=== PATIENT | male | born 1985 | race Caucasian/White ===

== ENCOUNTER 2016-09-28 14:12 | Emergency (ER) | payer OTHER ==
[~2016-09-28] VITALS: Ht 185.4 cm; Wt 104.0 kg
[~2016-09-28 14:12] MED LIST: ESZO1TAB16 PO
[2016-09-28 14:16] VITALS: TEMP 36.5; O2SAT 96; Ht 185.4 cm; Wt 104.0 kg
[2016-09-28] MEDS ORDERED: HYDROCODONE/ACETAMOPHEN 5/325MG TAB PO STA (14:52)
[2016-09-28] MEDS ORDERED: ZOLP12.5 PO (14:55)
--- NOTE | 2016-09-28 15:36 | EMERGENCY ROOM VISIT NOTE ---
ED Visit Note First contact with patient: 14:15 CHIEF COMPLAINT: Right ear pain HISTORY OF PRESENT ILLNESS: This 31-year-old male presents the ER with chief complaint of right ear pain for the past 3 days. The patient states it Progressively worse today. The patient denies any visible drainage from the ear. The patient states it feels like he cannot hear out of the right ear. The patient denies any recent cold symptoms such as head congestion, runny nose , sore throat or cough. The patient does admit to having a fungal infection in the ear several years ago. REVIEW OF SYSTEMS: 6 system review was performed and was negative unless stated otherwise in history of present illness. PMH: The patient is healthy; prior fungal ear infection, psychiatric disorder SOCIAL HISTORY: Patient denies tobacco use but admits to occasional alcohol use. PHYSICAL EXAM: Vital Signs: Were reviewed Reviewed Nurse's notes. GEN.: 31-year -old male appears in no acute distress. MENTAL Status: Alert and oriented 3. EARS: Left canal clear. TMs with good light reflex. Right TM with edema. There is a white curdy drainage noted on the TM with multiple black small spots which are "gravel-like in appearance" EMERGENCY COURSE: The patient was evaluated. The patient was given Lorman 5/325 mg 2 tablets by mouth for pain. The patient's case was discussed with Dr. Burnett who agreed with treatment plan. I contacted the hospital pharmacist who recommended acetic acid 2% to apply 4 times a day to the affected ear. One drop of acetic acid was placed into the right ear. The patient remained in the left lateral position for 10 minutes after placement of the drop. The patient was discharged home in stable condition. DIAGNOSIS: Acute otitis externa/fungal infection DISCHARGE INSTRUCTIONS & TREATMENT: Ibuprofen 600 mg every 6 hours with food for pain. Take Lorman as needed for more severe pain. Do not drive while taking the Lorman. Apply the eardrops 1 drop into the right ear 4 times a day until evaluated by ENT, Dr. Nuñez. Call Dr. Nuñez tomorrow for follow-up appointment. Keep ear as dry as possible until evaluated by ENT. Current/Historical Medications Scheduled Quetiapine Fumarate (Seroquel), 2 TAB PO HS Zolpidem Tartrate (Ambien Cr), 12.5 MG PO HS Allergies Coded Allergies: No Known Allergies (Unverified , 04/10/16) Vital Signs Date Time Temp Pulse Resp B/P Pulse Ox O2 Delivery O2 Flow Rate FiO2 09/28/16 14:16 36.5 126 20 151/93 96 Room Air Medications Administered Medications (Trade) Dose Ordered Sig/Marti Route Start Time Stop Time Status Last Admin Dose Admin Acetic Acid (Vosol 2% Otic Soln) 1 drops QID OT 09/28/16 17:00 10/28/16 16:59 09/28/16 15:26 1 DROPS Acetaminophen/ Hydrocodone Bitart (Lorman 5/325 Tab) 2 tab NOW STAT PO 09/28/16 14:52 09/28/16 14:53 DC 09/28/16 15:25 2 TAB Departure Information Referrals Ghassan Rosen, D.O.[facility] (PCP) Patient Instructions [facility]
[2016-09-28] MEDS ORDERED: HYDR-5688 PO (15:38)
[2016-09-28 15:44] VITALS: BP 140/98; PULSE 78
[2016-09-28] MEDS ORDERED: ACETIC ACID 2% OTIC SOLN 15 ML BTL OT SCH (17:00)
[2016-09-28] MEDS ORDERED: QUET400T PO (22:45)
== END 2016-09-28 15:50 | disposition home or self-care (01) ==
LOC: C.EDB 14:14 → C.EDD 15:50
DX: H60.501 Unspecified acute noninfective otitis externa, right ear (principal); B49 Unspecified mycosis; Z79.899 Other long term (current) drug therapy

== ENCOUNTER 2018-08-18 20:38 | Inpatient (IN) ==
[2018-08-18] MEDS ORDERED: SODIUM CHLORIDE 0.9% 1000ML 1,000 ML IV SCH (21:00)
[2018-08-18] MEDS ORDERED: MULTI-VITAMIN INFUSION 10 ML, THIAMINE HCL 100 MG, FOLIC ACID 1 MG in SODIUM CHLORIDE 0... IV SCH (21:00)
--- NOTE | 2018-08-18 21:18 | Emergency Department Note ---
Entered by Mg Hogan acting as a scribe for History of Present Illness General Chief complaint: Mental Health Evaluation Stated complaint: High blood pressure Time Seen by Provider: 08/18/18 20:44 Source: patient Limitations: altered mental status History of Present Illness Provider complaint: SUICIDAL/Depression Onset (ago): week(s) Location: head (Psych) Pain Consistency: + other (worsening mental status) Quality: + other (Depression/Suicidal) Exacerbated By: + other (Parent's selling his house) Treatments prior to arrival: none The patient is a 33 year old male who presents to the Emergency Room for his worsening mental status. The patient states that he has been depressed for a week, due to "his parents selling the house." He adds that he does not want the house to be sold, and this is upsetting him. The patient denies wanting to kill himself, but adds that does wants to hurt himself by "hanging myself." When asked again if the hanging would be performed to kill himself, he confirms. The patient also denies hearing voices, but notes that "it sounds like there are attorneys having an argument in my head." He denies that these voices in his head are telling him to hurt himself, but they do "tell me to do this and that. " The patient does admit to drinking 1/2 of a 1.75 L bottle of alcohol yesterday. He notes that a couple of days ago he went 3-4 days without drinking and went into withdrawal. The patient does confirm that he has a history of Schizophrenia and anxiety and is on Zyprexa. He denies any history of inpatient psych admission. Review of the patient's EMR shows that he was here in the ED two days ago for auditory hallucinations. He was cleared medically for psych case management evaluation. The patient was discharged home and told to come back immediately if he became suicidal. The patient was given Clonidine patch and 4-pills of Ativan. Home Medications Home Medications Medication Instructions Recorded Confirmed Type olanzapine [Zyprexa] 5 mg PO HS 08/16/18 08/18/18 History omega 1-mvv-yim-fish oil [Fish Oil] 1,000 mg PO DAILY 08/18/18 08/18/18 History zolpidem [Ambien CR] 12.5 mg PO HS 08/19/18 08/19/18 History Allergies Allergy/AdvReac Type Severity Reaction Status Date / Time No Known Allergies Allergy Verified 08/18/18 23:13 Past Med/Surg History Medical History Schizophrenia (Chronic) Sleep apnea (Chronic) No significant family history No significant past surgical history Social History Current Living Situation: Other Current Living Situation Comment: Lives with roomates Other Information That Helps Us Care for You: No Feels Safe at Home: Yes Safety Concerns: Feels Safe At This Time Smoking Status: Never smoker Do You Dip or Chew Tobacco: No Second Hand Exposure: Yes Tobacco Cessation Education Requested by Patient: No Hx Alcohol Use: Yes Alcohol type: beer, wine and hard liquor Alcohol Intake Frequency: 3 or more drinks per day Hx Substance Use: Yes substance use type: former substance user and marijuana Last Used Substance Other:: 2 months ago - marijuana Beliefs That Will Affect Care: None Communication Ability: Effective Review of Systems See HPI for pertinent positives & negatives. and A total of 10 systems reviewed and were otherwise negative Physical Exam Vital Signs Vital Signs - 24 hr 08/19/18 17:29 08/19/18 19:00 08/19/18 19:45 Temperature 36.7 C Temperature Source Oral Pulse Rate 130 H Pulse Rate [Finger] 121 H Pulse Rate [Left] Pulse Rhythm [Finger] Pulse Rhythm [Left] Pulse Strength [Finger] Pulse Strength [Left] Respiratory Rate 20 Respiratory Effort / Characteristics Non-Labored Respiratory Depth Normal Respiratory Pattern Regular Blood Pressure Blood Pressure [Left Arm] Blood Pressure [Right Arm] 151/88 H Blood Pressure Mean [Left Arm] Blood Pressure Mean [Right Arm] 109 Blood Pressure Position [Left Arm] Blood Pressure Position [Right Arm] Lying Pulse Oximetry 97 Oxygen Delivery Method Room Air Room Air 08/19/18 20:28 08/19/18 23:36 08/19/18 23:45 Temperature 37.1 C Temperature Source Oral Pulse Rate 121 H 120 H Pulse Rate [Finger] 120 H Pulse Rate [Left] Pulse Rhythm [Finger] Pulse Rhythm [Left] Pulse Strength [Finger] Pulse Strength [Left] Respiratory Rate 22 Respiratory Effort / Characteristics Respiratory Depth Respiratory Pattern Blood Pressure 151/88 H 152/98 H Blood Pressure [Left Arm] 152/98 H Blood Pressure [Right Arm] Blood Pressure Mean [Left Arm] 116 Blood Pressure Mean [Right Arm] Blood Pressure Position [Left Arm] Lying Blood Pressure Position [Right Arm] Pulse Oximetry 96 Oxygen Delivery Method Room Air 08/20/18 00:03 08/20/18 03:28 08/20/18 03:50 Temperature 36.6 C Temperature Source Oral Pulse Rate 117 H 100 H Pulse Rate [Finger] 100 H Pulse Rate [Left] Pulse Rhythm [Finger] Pulse Rhythm [Left] Pulse Strength [Finger] Pulse Strength [Left] Respiratory Rate 22 Respiratory Effort / Characteristics Non-Labored Respiratory Depth Normal Respiratory Pattern Regular Blood Pressure 156/105 H Blood Pressure [Left Arm] 156/105 H Blood Pressure [Right Arm] Blood Pressure Mean [Left Arm] 122 Blood Pressure Mean [Right Arm] Blood Pressure Position [Left Arm] Blood Pressure Position [Right Arm] Pulse Oximetry 98 Oxygen Delivery Method Room Air 08/20/18 06:29 08/20/18 07:29 08/20/18 09:15 Temperature 36.3 C L 36.7 C Temperature Source Oral Oral Pulse Rate 122 H Pulse Rate [Finger] 109 H 104 H Pulse Rate [Left] Pulse Rhythm [Finger] Pulse Rhythm [Left] Pulse Strength [Finger] Pulse Strength [Left] Respiratory Rate 20 18 Respiratory Effort / Characteristics Non-Labored Respiratory Depth Normal Normal Respiratory Pattern Blood Pressure Blood Pressure [Left Arm] 162/116 H 157/107 H Blood Pressure [Right Arm] Blood Pressure Mean [Left Arm] 131 123 Blood Pressure Mean [Right Arm] Blood Pressure Position [Left Arm] Sitting Blood Pressure Position [Right Arm] Pulse Oximetry 97 96 Oxygen Delivery Method Room Air Room Air 08/20/18 09:21 08/20/18 11:21 08/20/18 12:08 Temperature 36.6 C 37.3 C Temperature Source Oral Oral Pulse Rate 107 H Pulse Rate [Finger] 116 H Pulse Rate [Left] 116 H 99 H Pulse Rhythm [Finger] Regular Pulse Rhythm [Left] Regular Pulse Strength [Finger] Normal Pulse Strength [Left] Normal Respiratory Rate 19 18 Respiratory Effort / Characteristics Non-Labored Respiratory Depth Normal Normal Respiratory Pattern Regular Blood Pressure Blood Pressure [Left Arm] 161/111 H Blood Pressure [Right Arm] 172/110 H Blood Pressure Mean [Left Arm] 127 Blood Pressure Mean [Right Arm] 130 Blood Pressure Position [Left Arm] Sitting Blood Pressure Position [Right Arm] Semi-fowlers Pulse Oximetry 96 Oxygen Delivery Method Room Air 08/20/18 13:23 08/20/18 14:18 08/20/18 15:19 Temperature 37.5 C 36.9 C 37.2 C Temperature Source Oral Oral Oral Pulse Rate Pulse Rate [Finger] Pulse Rate [Left] 108 H 111 H 106 H Pulse Rhythm [Finger] Pulse Rhythm [Left] Pulse Strength [Finger] Pulse Strength [Left] Respiratory Rate 18 18 16 Respiratory Effort / Characteristics Respiratory Depth Normal Normal Respiratory Pattern Blood Pressure Blood Pressure [Left Arm] 146/91 H 171/96 H 159/106 H Blood Pressure [Right Arm] Blood Pressure Mean [Left Arm] 109 121 123 Blood Pressure Mean [Right Arm] Blood Pressure Position [Left Arm] Lying Lying Lying Blood Pressure Position [Right Arm] Pulse Oximetry 94 96 95 Oxygen Delivery Method Room Air Room Air Room Air GENERAL: Awake, anxious and tremulous appearing. HENT: Normocephalic, atraumatic. Oropharynx with dry mucous membranes and otherwise unremarkable. Poor dentition. EYES: Normal conjunctiva. Sclera non-icteric. EOMI. No nystamgus. PEARRL. NECK: Supple. No nuchal rigidity. FROM. No JVD. RESPIRATORY: Clear to auscultation. CARDIAC: Tachycardic rate, normal rhythm. Extremities warm and well perfused. Pulses equal. ABDOMEN: Soft, non-distended. No tenderness to palpation. No rebound or guarding. No masses. RECTAL: Deferred. MUSCULOSKELETAL: Chest examination reveals no tenderness. The back is symmetrical on inspection without obvious abnormality. There is no CVA tenderness to palpation. No joint edema. LOWER EXTREMITIES: Calves are equal size bilaterally and non-tender. No edema. No discoloration. NEURO: No sensory or motor deficits. Moving all extremities equally. No clonus or rigidity. Normal reflexes. SKIN: Warm and dry. No rash or jaundice noted. PSYCH: Positive SI with thoughts of hanging himself. Positive Auditory command hallucinations. Positive alcohol abuse. Denies drug abuse. Course Administered Medications Fish Oil ([place]-3 (Purified Fish Oil)) 1 gm PO DAILY [facility] Stop: 09/18/18 08:59 Last Admin: 08/20/18 09:16 Dose: 1 gm Admin: 08/19/18 08:07 Dose: 1 gm Folic Acid (Folvite) 1 mg PO QAM [facility] Stop: 09/18/18 08:59 Last Admin: 08/20/18 09:15 Dose: 1 mg Admin: 08/19/18 08:07 Dose: 1 mg Lorazepam (Ativan) 1 mg in 2 mls @ 2 mls/min IV UD PRN; Protocol PRN Reason: EtOH Withdrawl AWSS Score 6,7 Stop: 09/18/18 06:18 Last Admin: 08/20/18 15:22 Dose: 2 mls/min Admin: 08/20/18 09:30 Dose: 2 mls/min Admin: 08/20/18 00:18 Dose: 2 mls/min Admin: 08/19/18 08:00 Dose: 2 mls/min Admin: 08/19/18 06:43 Dose: 2 mls/min Lorazepam (Ativan) 3 mg in 6 mls @ 4 mls/min IV ONCE PRN; Protocol PRN Reason: EtOH Withdrawl AWSS Score >=10 Stop: 09/18/18 06:18 Last Admin: 08/19/18 17:30 Dose: 4 mls/min Admin: 08/19/18 11:04 Dose: 4 mls/min Potassium Chloride/Sodium Chloride (Normal Saline W/20 Meq Kcl) 20 meq in 1, 000 mls @ 100 mls/hr IV .Q10H [facility] Stop: 09/18/18 06:29 Last Admin: 08/20/18 09:29 Dose: 100 mls/hr Infusion: 08/20/18 08:48 Dose: 100 mls/hr Admin: 08/19/18 22:48 Dose: 100 mls/hr Infusion: 08/19/18 22:47 Dose: Admin: 08/19/18 18:51 Dose: Not Given Admin: 08/19/18 06:40 Dose: 100 mls/hr Lorazepam (Ativan) 2 mg in 4 mls @ 4 mls/min IV UD PRN; Protocol PRN Reason: EtOH Withdrawl AWSS Score 8,9 Stop: 09/18/18 06:18 Last Admin: 08/20/18 12:08 Dose: 4 mls/min Admin: 08/20/18 06:35 Dose: 4 mls/min Metoprolol Tartrate (Lopressor) 25 mg PO Q8H [facility] Stop: 09/19/18 13:59 Last Admin: 08/20/18 15:22 Dose: 25 mg Olanzapine (Zyprexa) 5 mg PO HS [facility] Stop: 09/18/18 20:59 Last Admin: 08/19/18 20:11 Dose: 5 mg Thiamine HCl (Vitamin B-1) 100 mg PO QAM [facility] Stop: 09/19/18 08:59 Last Admin: 08/20/18 09:16 Dose: 100 mg Vitamin B Complex/Folic Acid (Nephrocaps) 1 cap PO QAM [facility] Stop: 09/18/18 08:59 Last Admin: 08/20/18 09:16 Dose: 1 cap Admin: 08/19/18 08:07 Dose: 1 cap Zolpidem Tartrate (Ambien) 10 mg PO [facility] Stop: 09/18/18 20:59 Last Admin: 08/19/18 20:12 Dose: 10 mg Discontinued Medications Acetaminophen (Tylenol) 1,000 mg PO NOW STA Stop: 08/19/18 03:04 Last Admin: 08/19/18 03:09 Dose: 1,000 mg Benztropine Mesylate (Cogentin) 1 mg IV NOW STA Stop: 08/18/18 22:36 Last Admin: 08/18/18 23:08 Dose: 1 mg Famotidine (Pepcid) 20 mg PO NOW ONE Stop: 08/19/18 03:04 Last Admin: 08/19/18 03:09 Dose: 20 mg Multivitamins 10 ml/ Thiamine HCl 100 mg/ Folic Acid 1 mg/Sodium Chloride 1, 011.2 mls @ 1,011.2 mls/hr IV .Q1H [facility] Stop: 08/18/18 21:59 Last Infusion: 08/18/18 23:16 Dose: 0 mls/hr Admin: 08/18/18 22:10 Dose: 1,011.2 mls/hr Sodium Chloride (Nss 1000ml) 1,000 mls @ 999 mls/hr IV .Q1H1M [facility] Stop: 08/18/18 22:00 Last Infusion: 08/18/18 22:57 Dose: 0 mls/hr Admin: 08/18/18 21:46 Dose: 999 mls/hr Lorazepam (Ativan) 1 mg in 2 mls @ 2 mls/min IV NOW STA Stop: 08/18/18 22:17 Last Admin: 08/18/18 22:37 Dose: 2 mls/min Lorazepam (Ativan) 2 mg in 4 mls @ 4 mls/min IV NOW STA Stop: 08/19/18 04:27 Last Admin: 08/19/18 04:31 Dose: 4 mls/min Ibuprofen (Motrin) 600 mg PO NOW STA Stop: 08/19/18 23:00 Last Admin: 08/19/18 23:29 Dose: 600 mg Lorazepam (Ativan) Confirm Administered Dose 2 mg .ROUTE .STK-MED ONE Stop: 08/19/18 03:07 Last Admin: 08/19/18 03:10 Dose: 1 mg Metoprolol Tartrate (Lopressor) 5 mg IV Q4 [facility] Stop: 09/18/18 07:59 Last Admin: 08/20/18 12:08 Dose: 5 mg Admin: 08/20/18 09:15 Dose: 5 mg Admin: 08/20/18 03:50 Dose: 5 mg Admin: 08/19/18 23:45 Dose: 5 mg Admin: 08/19/18 20:28 Dose: 5 mg Admin: 08/19/18 17:29 Dose: 5 mg Admin: 08/19/18 13:11 Dose: 5 mg Admin: 08/19/18 08:07 Dose: 5 mg Thiamine HCl (Vitamin B-1) 100 mg PO QAM STA Stop: 08/19/18 06:20 Last Admin: 08/19/18 06:46 Dose: 100 mg Medical Decision Making Differential Diagnosis Differential diagnosis: Etiologies such as psychiatric disorder, infection, hypoglycemia, electrolyte abnormalities, cardiac sources, intracerebral event, toxicological process, neurologic disorder, as well as others were entertained. Medical Records Attestation: I reviewed the patient's medical records. Home Medications Current Medication List: was personally reviewed by me Laboratory Data Attestation: I reviewed the patient's lab results. Result diagrams: 08/20/18 06:03 08/20/18 06:03 Lab Results 08/18/18 08/18/18 08/18/18 Range/Units 21:10 21:10 21:43 WBC 8.54 (4.8-10.8) K/uL RBC 5.63 (4.7-6.1) M/uL Hgb 17.2 (14.0-18.0) g/dL Hct 50.0 (42-52) % MCV 88.8 (80-100) fL MCH 30.6 (25-34) pg MCHC 34.4 (32-36) g/dL RDW Std Deviation 45.6 (36.4-46.3) fL RDW Coeff of Ronnie 14.0 (11.5-14.5) % Plt Count 342 (130-400) K/uL MPV 10.4 (7.4-10.4) fL Immature Gran % (Auto) 0.2 % Neut % (Auto) 59.5 % Lymph % (Auto) 35.2 % Darke % (Auto) 4.2 % Eos % (Auto) 0.4 % Baso % (Auto) 0.5 % Immature Gran # (Auto) 0.02 (0.00-0.02) K/uL Neut # (Auto) 5.08 (1.4-6.5) K/uL Lymph # (Auto) 3.01 (1.2-3.4) K/uL Darke # (Auto) 0.36 (0.11-0.59) K/uL Eos # (Auto) 0.03 (0-0.5) K/uL Baso # (Auto) 0.04 (0-0.2) K/uL PT (9.0-12.0) Seconds INR (0.9-1.1) APTT (21.0-31.0) Seconds PTT Ratio Sodium (136-145) mmol/L Potassium (3.5-5.1) mmol/L Chloride (98-107) mmol/L Carbon Dioxide (21-32) mmol/L Anion Gap (3-11) BUN (7-18) mg/dl Creatinine (0.6-1.4) mg/dl Est Cr Clr Drug Dosing ml/min Est GFR ( Amer) Est GFR (Non-Af Amer) BUN/Creatinine Ratio (10-20) Glucose (70-99) mg/dl Calcium (8.5-10.1) mg/dl Magnesium (1.8-2.4) mg/dl Total Bilirubin (0.2-1) mg/dl AST (15-37) U/L ALT (12-78) U/L Alkaline Phosphatase (45-117) U/L Troponin I (0-0.045) ng/ml Total Protein (6.4-8.2) gm/dl Albumin (3.4-5.0) gm/dl Globulin (2.5-4.0) gm/dl Albumin/Globulin Ratio (0.9-2) Folate (>5.38) ng/ml TSH (0.300-4.500) uIu/ml Urine Color Yellow Urine Appearance Clear (Clear) Urine pH 6.5 (4.5-7.5) Ur Specific [place] 1.015 (1.000-1.030) Urine Protein Negative (Negative) Urine Glucose (UA) Negative (Negative) Urine Ketones Negative (Negative) Urine Blood Negative (Negative) Urine Nitrite Negative (Negative) Urine Bilirubin Negative (Negative) Urine Urobilinogen Negative (Negative) Ur Leukocyte Esterase Negative (Negative) Salicylates (2.8-20) mg/dl Urine Opiates Screen Neg (Neg) Ur Methadone, Qual Neg (Neg) Acetaminophen (10-30) ug/ml Urine Barbiturates Neg (Neg) Ur Phencyclidine (PCP) Neg (Neg) U Amphetamin/Meth Scrn Neg (Neg) MDMA (Ecstasy) Screen Neg (Neg) U Benzodiazepines Scrn Neg (Neg) Ur Cocaine Metabolite Neg (Neg) U Marijuana (THC) Screen Neg (Neg) Ethyl Alcohol mg/dL (0-3) mg/dl 08/18/18 08/18/18 08/18/18 Range/Units 21:43 21:43 21:43 WBC (4.8-10.8) K/uL RBC (4.7-6.1) M/uL Hgb (14.0-18.0) g/dL Hct (42-52) % MCV (80-100) fL MCH (25-34) pg MCHC (32-36) g/dL RDW Std Deviation (36.4-46.3) fL RDW Coeff of Ronnie (11.5-14.5) % Plt Count (130-400) K/uL MPV (7.4-10.4) fL Immature Gran % (Auto) % Neut % (Auto) % Lymph % (Auto) % Darke % (Auto) % Eos % (Auto) % Baso % (Auto) % Immature Gran # (Auto) (0.00-0.02) K/uL Neut # (Auto) (1.4-6.5) K/uL Lymph # (Auto) (1.2-3.4) K/uL Darke # (Auto) (0.11-0.59) K/uL Eos # (Auto) (0-0.5) K/uL Baso # (Auto) (0-0.2) K/uL PT (9.0-12.0) Seconds INR (0.9-1.1) APTT (21.0-31.0) Seconds PTT Ratio Sodium 140 (136-145) mmol/L Potassium 3.7 (3.5-5.1) mmol/L Chloride 103 (98-107) mmol/L Carbon Dioxide 24 (21-32) mmol/L Anion Gap 12.0 H (3-11) BUN 12 (7-18) mg/dl Creatinine 1.07 (0.6-1.4) mg/dl Est Cr Clr Drug Dosing 127.8 ml/min Est GFR ( Amer) 106.6 Est GFR (Non-Af Amer) 92.0 BUN/Creatinine Ratio 11.5 (10-20) Glucose 116 H (70-99) mg/dl Calcium 9.3 (8.5-10.1) mg/dl Magnesium 2.1 (1.8-2.4) mg/dl Total Bilirubin 0.4 (0.2-1) mg/dl AST 123 H (15-37) U/L ALT 149 H (12-78) U/L Alkaline Phosphatase 88 (45-117) U/L Troponin I (0-0.045) ng/ml Total Protein 8.5 H (6.4-8.2) gm/dl Albumin 4.1 (3.4-5.0) gm/dl Globulin 4.4 H (2.5-4.0) gm/dl Albumin/Globulin Ratio 0.9 (0.9-2) Folate (>5.38) ng/ml TSH 0.488 (0.300-4.500) uIu/ml Urine Color Urine Appearance (Clear) Urine pH (4.5-7.5) Ur Specific [place] (1.000-1.030) Urine Protein (Negative) Urine Glucose (UA) (Negative) Urine Ketones (Negative) Urine Blood (Negative) Urine Nitrite (Negative) Urine Bilirubin (Negative) Urine Urobilinogen (Negative) Ur Leukocyte Esterase (Negative) Salicylates < 1.7 L (2.8-20) mg/dl Urine Opiates Screen (Neg) Ur Methadone, Qual (Neg) Acetaminophen < 2 L (10-30) ug/ml Urine Barbiturates (Neg) Ur Phencyclidine (PCP) (Neg) U Amphetamin/Meth Scrn (Neg) MDMA (Ecstasy) Screen (Neg) U Benzodiazepines Scrn (Neg) Ur Cocaine Metabolite (Neg) U Marijuana (THC) Screen (Neg) Ethyl Alcohol mg/dL 252.2 H (0-3) mg/dl 08/19/18 08/19/18 08/20/18 Range/Units 06:52 06:52 06:03 WBC 9.08 (4.8-10.8) K/uL RBC 5.06 (4.7-6.1) M/uL Hgb 15.3 (14.0-18.0) g/dL Hct 45.7 (42-52) % MCV 90.3 (80-100) fL MCH 30.2 (25-34) pg MCHC 33.5 (32-36) g/dL RDW Std Deviation 46.1 (36.4-46.3) fL RDW Coeff of Ronnie 14.1 (11.5-14.5) % Plt Count 224 (130-400) K/uL MPV 10.4 (7.4-10.4) fL Immature Gran % (Auto) 0.3 % Neut % (Auto) 78.8 % Lymph % (Auto) 13.1 % Darke % (Auto) 7.6 % Eos % (Auto) 0.1 % Baso % (Auto) 0.1 % Immature Gran # (Auto) 0.03 H (0.00-0.02) K/uL Neut # (Auto) 7.15 H (1.4-6.5) K/uL Lymph # (Auto) 1.19 L (1.2-3.4) K/uL Darke # (Auto) 0.69 H (0.11-0.59) K/uL Eos # (Auto) 0.01 (0-0.5) K/uL Baso # (Auto) 0.01 (0-0.2) K/uL PT (9.0-12.0) Seconds INR (0.9-1.1) APTT (21.0-31.0) Seconds PTT Ratio Sodium (136-145) mmol/L Potassium (3.5-5.1) mmol/L Chloride (98-107) mmol/L Carbon Dioxide (21-32) mmol/L Anion Gap (3-11) BUN (7-18) mg/dl Creatinine (0.6-1.4) mg/dl Est Cr Clr Drug Dosing ml/min Est GFR ( Amer) Est GFR (Non-Af Amer) BUN/Creatinine Ratio (10-20) Glucose (70-99) mg/dl Calcium (8.5-10.1) mg/dl Magnesium (1.8-2.4) mg/dl Total Bilirubin (0.2-1) mg/dl AST (15-37) U/L ALT (12-78) U/L Alkaline Phosphatase (45-117) U/L Troponin I < 0.015 (0-0.045) ng/ml Total Protein (6.4-8.2) gm/dl Albumin (3.4-5.0) gm/dl Globulin (2.5-4.0) gm/dl Albumin/Globulin Ratio (0.9-2) Folate > 24.00 (>5.38) ng/ml TSH (0.300-4.500) uIu/ml Urine Color Urine Appearance (Clear) Urine pH (4.5-7.5) Ur Specific [place] (1.000-1.030) Urine Protein (Negative) Urine Glucose (UA) (Negative) Urine Ketones (Negative) Urine Blood (Negative) Urine Nitrite (Negative) Urine Bilirubin (Negative) Urine Urobilinogen (Negative) Ur Leukocyte Esterase (Negative) Salicylates (2.8-20) mg/dl Urine Opiates Screen (Neg) Ur Methadone, Qual (Neg) Acetaminophen (10-30) ug/ml Urine Barbiturates (Neg) Ur Phencyclidine (PCP) (Neg) U Amphetamin/Meth Scrn (Neg) MDMA (Ecstasy) Screen (Neg) U Benzodiazepines Scrn (Neg) Ur Cocaine Metabolite (Neg) U Marijuana (THC) Screen (Neg) Ethyl Alcohol mg/dL (0-3) mg/dl 08/20/18 08/20/18 Range/Units 06:03 06:03 WBC (4.8-10.8) K/uL RBC (4.7-6.1) M/uL Hgb (14.0-18.0) g/dL Hct (42-52) % MCV (80-100) fL MCH (25-34) pg MCHC (32-36) g/dL RDW Std Deviation (36.4-46.3) fL RDW Coeff of Ronnie (11.5-14.5) % Plt Count (130-400) K/uL MPV (7.4-10.4) fL Immature Gran % (Auto) % Neut % (Auto) % Lymph % (Auto) % Darke % (Auto) % Eos % (Auto) % Baso % (Auto) % Immature Gran # (Auto) (0.00-0.02) K/uL Neut # (Auto) (1.4-6.5) K/uL Lymph # (Auto) (1.2-3.4) K/uL Darke # (Auto) (0.11-0.59) K/uL Eos # (Auto) (0-0.5) K/uL Baso # (Auto) (0-0.2) K/uL PT 10.1 (9.0-12.0) Seconds INR 1.0 (0.9-1.1) APTT 28.2 (21.0-31.0) Seconds PTT Ratio 1.0 Sodium 137 (136-145) mmol/L Potassium 3.5 (3.5-5.1) mmol/L Chloride 105 (98-107) mmol/L Carbon Dioxide 25 (21-32) mmol/L Anion Gap 7.0 (3-11) BUN 8 (7-18) mg/dl Creatinine 1.03 (0.6-1.4) mg/dl Est Cr Clr Drug Dosing 130.7 ml/min Est GFR ( Amer) 111.7 Est GFR (Non-Af Amer) 96.3 BUN/Creatinine Ratio 7.7 L (10-20) Glucose 95 (70-99) mg/dl Calcium 8.3 L (8.5-10.1) mg/dl Magnesium (1.8-2.4) mg/dl Total Bilirubin 0.5 (0.2-1) mg/dl AST 57 H (15-37) U/L ALT 101 H (12-78) U/L Alkaline Phosphatase 79 (45-117) U/L Troponin I (0-0.045) ng/ml Total Protein 7.0 (6.4-8.2) gm/dl Albumin 3.4 (3.4-5.0) gm/dl Globulin 3.6 (2.5-4.0) gm/dl Albumin/Globulin Ratio 0.9 (0.9-2) Folate (>5.38) ng/ml TSH (0.300-4.500) uIu/ml Urine Color Urine Appearance (Clear) Urine pH (4.5-7.5) Ur Specific [place] (1.000-1.030) Urine Protein (Negative) Urine Glucose (UA) (Negative) Urine Ketones (Negative) Urine Blood (Negative) Urine Nitrite (Negative) Urine Bilirubin (Negative) Urine Urobilinogen (Negative) Ur Leukocyte Esterase (Negative) Salicylates (2.8-20) mg/dl Urine Opiates Screen (Neg) Ur Methadone, Qual (Neg) Acetaminophen (10-30) ug/ml Urine Barbiturates (Neg) Ur Phencyclidine (PCP) (Neg) U Amphetamin/Meth Scrn (Neg) MDMA (Ecstasy) Screen (Neg) U Benzodiazepines Scrn (Neg) Ur Cocaine Metabolite (Neg) U Marijuana (THC) Screen (Neg) Ethyl Alcohol mg/dL (0-3) mg/dl Blood Pressure Blood Pressure Findings: Elevated blood pressure Blood Pressure Disposition: elevated BP felt to be situational MDM Narrative The patient is a 33-year-old gentleman with a past medical history of schizophrenia on Zyprexa and zolpidem resents emergency department with thoughts of suicide by hanging in the setting of worsening of his auditory hallucinations per hpi. The patient is a poor historian. The patient does have a history of alcohol abuse and reports drinking alcohol tonight. He reports he drinks almost a liter of vodka a day, she is different from what he reported on 08/03 where he said he drinks 3 cans of [place] every night. The patient also reports that he does not want to kill himself but when asked how he was thinking of trying to hurt himself he reports he was "thinking of hanging himself". Additionally, when asked if the patient hears voices he denies and says "No, but I hear jacket preparer talking in my head ". When asked if these voices tell him to do things he says "no, but they tell me to do this and do that". Patient clearly is exhibiting severe psychosis and disorganization to the point where I believe the patient is unable to function safely and could pose a risk of harm to himself both in terms of his suicidal ideation as well as his severe disorganization. Moreover it is the patient's third visit to the emergency department this month, including visit 2 days ago where he was seen for auditory hallucinations and was told to return should he began to have thoughts of suicide. I do not believe that the patient has capacity to refuse or consent for inpatient psychiatric treatment at this time and therefore meets criteria for 302. CM to proceed with 302 petition. Patient seems to express understanding of this process when explained. On arrival the patient appears restless and anxious with heart rate in the 130s and hypertensive 170-180s/100s but is otherwise stable. EKG demonstrates sinus tachycardia at 114 with QRS 104 QTC 478 with KS interval 156. AVR unremarkable and otherwise no ST elevations. WBC, H/H, platelets wnl. Chemistry without acidosis. Electrolytes unremarkable. AST and ALT slightly elevated at 123 and 149 respectively. Total bilirubin within normal limits. UA negative. Aspirin and Tylenol negative. Urine drug screen unremarkable. Alcohol level 252. Treatment initiated with IV fluid hydration including banana bag given the patient's significant alcohol use. While the patient's alcohol is 250 he does drink extensively and his restlessness may represent a component of early withdrawal and so was given 1 mg of Ativan. Additionally, patient does take Zyprexa and so will trial a dose of Cogentin for possible Akathisia. Cased signed out to Dr. Russ pending observation until AM when patient's alcohol level metabolizes and patient is clinically sober. Impression & Plan Suicidal ideation, Psychosis Discharge Plan Visit Data *Final* Discharge Date/Time: 08/19/18 05:45 Chief Complaint: Mental Health Evaluation Stated Complaint: High blood pressure ED Provider: Brandy Russ Discharge Problem: Suicidal ideation, Psychosis Patient Disposition: Admitted As Inpatient Discharge Instructions Interventions: ED Discharge Assessment Last Done: 08/19/18 05:45 The scribe's documentation has been prepared under my direction and personally reviewed by me in its entirety. I confirm that the note above accurately reflects all work, treatment, procedures, and medical decision making performed by me.
[2018-08-18 21:19] LABS: Appearance Urine Clear (Clear); Bilirubin Urine Negative (Negative); Color Urine Yellow; Glucose Urine UA Negative (Negative); Ketones Urine Negative (Negative); Leukocyte Esterase Urine Negative (Negative); Nitrite Urine Negative (Negative); Protein Urine Negative (Negative); Specific Gravity Urine 1.015 (1.000-1.030); Urobilinogen Urine Negative (Negative); pH Urine 6.5 (4.5-7.5)
[2018-08-18 21:39] LABS: Amphetamines+Metham, Urine Neg (Neg); Barbiturates, Urine Neg (Neg); Benzodiazepine, Urine Neg (Neg); Cocaine, Urine Neg (Neg); MDMA (Ecstacy), Urine Neg (Neg); Methadone, Urine Neg (Neg); Opiate, Urine Neg (Neg); Phencyclidine, Urine Neg (Neg)
[2018-08-18 21:57] LABS: Basophils # (auto) 0.04 K/uL (0-0.2); Basophils % (auto) 0.5 %; Eosinophils # (auto) 0.03 K/uL (0-0.5); Eosinophils % (auto) 0.4 %; Hemoglobin 17.2 g/dL (14.0-18.0); Immature Granulocytes # (auto) 0.02 K/uL (0.00-0.02); Immature Granulocytes % (auto) 0.2 %; Lymphocytes # (auto) 3.01 K/uL (1.2-3.4); Lymphocytes % (auto) 35.2 %; Mean Corpuscular Hgb Conc 34.4 g/dL (32-36); Mean Corpuscular Volume 88.8 fL (80-100); Mean Platelet Volume 10.4 fL (7.4-10.4); Monocytes # (auto) 0.36 K/uL (0.11-0.59); Monocytes % (auto) 4.2 %; Neutrophils # (auto) 5.08 K/uL (1.4-6.5); Neutrophils % (auto) 59.5 %; Platelet Count 342 K/uL (130-400); RDW Standard Deviation 45.6 fL (36.4-46.3); Red Blood Count 5.63 M/uL (4.7-6.1); White Blood Count 8.54 K/uL (4.8-10.8)
[2018-08-18 22:16] LABS: Albumin Level 4.1 gm/dl (3.4-5.0); BUN Creatinine Ratio 11.5 (10-20); Calcium 9.3 mg/dl (8.5-10.1); Creatinine Clr Calc Pharmacy 127.8 ml/min; Est GFR (African American) 106.6; Magnesium 2.1 mg/dl (1.8-2.4); Potassium 3.7 mmol/L (3.5-5.1)
[2018-08-18] MEDS ORDERED: LORazepam 1 MG/2 ML VIAL IV STA (22:16)
[2018-08-18 22:20] LABS: Acetaminophen < 2 ug/ml (10-30)
[2018-08-18 22:21] LABS: Salicylate < 1.7 mg/dl (2.8-20)
[2018-08-18 22:26] LABS: Albumin Globulin Ratio 0.9 (0.9-2); Bilirubin,Total 0.4 mg/dl (0.2-1); Globulin 4.4 gm/dl (2.5-4.0); Total Protein 8.5 gm/dl (6.4-8.2)
[2018-08-18] MEDS ORDERED: BENZTROPINE MESYLATE 1 MG/ML 2 ML AMP IV STA (22:35)
--- NOTE | 2018-08-19 00:26 | Emergency Department Note ---
ED Visit Note This patient was signed out to me at change of shift awaiting sobriety and complete psychiatric evaluation 0300: The patient was a bit more sober. In fact, he was starting to have some withdrawal symptoms. He was given an additional milligram of Ativan. The patient complained of headache and was given a gram of Tylenol. He also complained of some GI upset was given 20 mg of Pepcid. I had a lengthy conversation with the patient in the ED psychiatric classification case manager. The patient was eating a turkey sandwich during the discussion. He seems quite tremulous at this time. He does admit to auditory hallucinations about hanging himself as a way to commit suicide. The patient also describes wanting to stop drinking alcohol but states that he uses it as a sleep aid. He admits that he could use Ambien in place of the alcohol. He is interested in dual diagnosis placement. The patient is willing to sign himself in voluntarily. He met with the ED psychiatric classification case manager. Referral was made to [facility]. Unfortunately, they were unwilling to accept the patient for admission because of his hypertension and tachycardia. They requested that the patient have a heart rate less than 100 for approximately 4 hours before they be willing to accept the patient. The patient was given 2 mg of IV Ativan at this time since he does seem to be somewhat agitated and tremulous. I discussed the case with the [facility] Hospitalist and they will evaluate for a medical admission until the heart rate is stable and withdrawal symptoms are controlled. .
[2018-08-19] MEDS ORDERED: ACETAMINOPHEN 500 MG TAB PO STA (03:03)
[2018-08-19] MEDS ORDERED: FAMOTIDINE 20 MG TAB PO ONE (03:03)
[2018-08-19] MEDS ORDERED: LORazepam 2 MG/4 ML VIAL ONE (03:06)
[2018-08-19] MEDS ORDERED: LORazepam 2 MG/4 ML VIAL IV STA (04:26)
--- NOTE | 2018-08-19 04:56 | History & Physical Report ---
Date of Service August 19, 2018 Assessment & Plan (1) Alcohol withdrawal: Alcohol withdrawal/intoxication/sinus tachycardia-- Admit to monitored bed. AWSS protocol with IV Ativan. Thiamine 100 mg p.o. every morning. Folic acid 1 mg p.o. every morning. Nephrocaps 1 p.o. every morning. NSS + KCl 20 mEq at 100 mils per hour. Present on Admission?: Yes (2) Alcohol intoxication: As above. His first presentation to [facility] was to the emergency department on August 16 Present on Admission?: Yes (3) Schizophrenia: Schizophrenia/auditory hallucinations/suicidal ideation-- Order one-on-one observation. Consult psychiatry. For now continue his medications of olanzapine 5 mg p.o. at bedtime, and zolpidem 12.5 mg p.o. at bedtime Present on Admission?: Yes (4) Suicidal ideation: As above. Will order one-on-one observation Present on Admission?: Yes (5) Tachycardia: Lopressor 5 mg IV every 4 hours with hold parameters. Present on Admission?: Yes (6) Abnormal liver function tests: Order ultrasound of right upper quadrant of abdomen. Follow serial laboratories. Avoid hepatotoxic agents. Present on Admission?: Yes History of Present Illness Chief Complaint: The patient presented to the emergency department for mental health evaluation, in particular associated with being upset about his parents selling his house. He did confirm that he would attempt to kill himself by hanging himself. The patient does hear voices in his head, that he denies have told him to hurt himself, but they do tell him to "do this and that". Primary Care Provider: Jam Quesada MD The patient is a 33-year-old male with a past medical history including schizophrenia and alcohol use disorder, who presented to the ED for mental health evaluation. Initial plan was for the patient to be monitored in the ED until he became more sober, and then transferred to the mental health unit. However, he began to develop tachycardia and hypertension after several hours in the ED, and we were asked to admit him to the medical service until he is medically stable to go to the mental health unit. Allergies Allergy/AdvReac Type Severity Reaction Status Date / Time No Known Allergies Allergy Verified 08/18/18 23:13 Home Medications Home Medications Medication Instructions Recorded Confirmed Type olanzapine [Zyprexa] 5 mg PO HS 08/16/18 08/18/18 History omega 8-gny-gqb-fish oil [Fish Oil] 1,000 mg PO DAILY 08/18/18 08/18/18 History zolpidem [Ambien CR] 12.5 mg PO HS 08/19/18 08/19/18 History Past Med/Surg History Medical History Schizophrenia (Chronic) Sleep apnea (Chronic) No significant family history No significant past surgical history Social History Feels Safe at Home: Yes Smoking Status: Never smoker Hx Alcohol Use: Yes Alcohol type: beer Alcohol Intake Frequency: 3 or more drinks per day Preferred Language: Martiniquais Review of Systems The patient denies chest pain, palpitations, shortness of breath, dyspnea on exertion, cough, lower extremity swelling, sore throat, fevers, chills, vomiting, diarrhea , constipation, abdominal pain, pelvic pain, blood in urine or stool, dysuria, urinary frequency or urgency, headache, memory loss, loss of consciousness Imbalance, focal or generalized weakness, numbness or tingling in arms or legs, generalized arthralgias or myalgias, back or neck pain, or night sweats. The review of systems is otherwise negative other than for that already noted above, and at least 10 systems have been reviewed. Physical Exam 2 Vital Signs (Past 24 Hours): Last Vital Signs Temp 37.5 C 08/19/18 04:00 Pulse 124 H 08/19/18 04:00 Resp 20 08/19/18 04:00 BP 170/117 H 08/19/18 04:00 Pulse Ox 98 08/19/18 04:00 Physical Exam: The patient is awake, alert and oriented �3, normocephalic and atraumatic, lying in bed and in no acute distress. HEENT--PERRL, EOMI, mucous membranes and oropharynx dry. Neck--supple. No JVD. No bruits. Thyroid normal, trachea midline, no adenopathy. Heart--normal S1 and S2. No murmurs, rubs or gallops. Lungs--clear bilaterally, no respiratory distress, no accessory muscle use. Abdomen--normal bowel sounds and soft. Nontender. Nondistended. Extremities--no cyanosis or clubbing. No edema. There are good distal pulses b/ l. Dermatologic--normal skin turgor, normal color, no abnormal lymph nodes, no rash. Neurologic--cranial nerves II through XII grossly intact. Rheumatologic--normal range of motion. Psychiatric--normal affect. Results & Data Laboratory Results Laboratory Results WBC 8.54 K/uL (4.8-10.8) 08/18/18 21:43 RBC 5.63 M/uL (4.7-6.1) 08/18/18 21:43 Hgb 17.2 g/dL (14.0-18.0) 08/18/18 21:43 Hct 50.0 % (42-52) 08/18/18 21:43 MCV 88.8 fL (80-100) 08/18/18 21:43 MCH 30.6 pg (25-34) 08/18/18 21:43 MCHC 34.4 g/dL (32-36) 08/18/18 21:43 RDW Std Deviation 45.6 fL (36.4-46.3) 08/18/18 21:43 RDW Coeff of Ronnie 14.0 % (11.5-14.5) 08/18/18 21:43 Plt Count 342 K/uL (130-400) 08/18/18 21:43 MPV 10.4 fL (7.4-10.4) 08/18/18 21:43 Immature Gran % (Auto) 0.2 % 08/18/18 21:43 Neut % (Auto) 59.5 % 08/18/18 21:43 Lymph % (Auto) 35.2 % 08/18/18 21:43 [place] % (Auto) 4.2 % 08/18/18 21:43 Eos % (Auto) 0.4 % 08/18/18 21:43 Baso % (Auto) 0.5 % 08/18/18 21:43 Immature Gran # (Auto) 0.02 K/uL (0.00-0.02) 08/18/18 21:43 Neut # (Auto) 5.08 K/uL (1.4-6.5) 08/18/18 21:43 Lymph # (Auto) 3.01 K/uL (1.2-3.4) 08/18/18 21:43 [place] # (Auto) 0.36 K/uL (0.11-0.59) 08/18/18 21:43 Eos # (Auto) 0.03 K/uL (0-0.5) 08/18/18 21:43 Baso # (Auto) 0.04 K/uL (0-0.2) 08/18/18 21:43 Sodium 140 mmol/L (136-145) 08/18/18 21:43 Potassium 3.7 mmol/L (3.5-5.1) 08/18/18 21:43 Chloride 103 mmol/L (98-107) 08/18/18 21:43 Carbon Dioxide 24 mmol/L (21-32) 08/18/18 21:43 Anion Gap 12.0 (3-11) H 08/18/18 21:43 BUN 12 mg/dl (7-18) 08/18/18 21:43 Creatinine 1.07 mg/dl (0.6-1.4) 08/18/18 21:43 Est Cr Clr Drug Dosing 127.8 ml/min 08/18/18 21:43 Est GFR ( Amer) 106.6 08/18/18 21:43 Est GFR (Non-Af Amer) 92.0 08/18/18 21:43 BUN/Creatinine Ratio 11.5 (10-20) 08/18/18 21:43 Glucose 116 mg/dl (70-99) H 08/18/18 21:43 Calcium 9.3 mg/dl (8.5-10.1) 08/18/18 21:43 Magnesium 2.1 mg/dl (1.8-2.4) 08/18/18 21:43 Total Bilirubin 0.4 mg/dl (0.2-1) 08/18/18 21:43 AST 123 U/L (15-37) H 08/18/18 21:43 ALT 149 U/L (12-78) H 08/18/18 21:43 Alkaline Phosphatase 88 U/L (45-117) 08/18/18 21:43 Total Protein 8.5 gm/dl (6.4-8.2) H 08/18/18 21:43 Albumin 4.1 gm/dl (3.4-5.0) 08/18/18 21:43 Globulin 4.4 gm/dl (2.5-4.0) H 08/18/18 21:43 Albumin/Globulin Ratio 0.9 (0.9-2) 08/18/18 21:43 TSH 0.488 uIu/ml (0.300-4.500) 08/18/18 21:43 Urine Color Yellow 08/18/18 21:10 Urine Appearance Clear (Clear) 08/18/18 21:10 Urine pH 6.5 (4.5-7.5) 08/18/18 21:10 Ur Specific [place] 1.015 (1.000-1.030) 08/18/18 21:10 Urine Protein Negative (Negative) 08/18/18 21:10 Urine Glucose (UA) Negative (Negative) 08/18/18 21:10 Urine Ketones Negative (Negative) 08/18/18 21:10 Urine Blood Negative (Negative) 08/18/18 21:10 Urine Nitrite Negative (Negative) 08/18/18 21:10 Urine Bilirubin Negative (Negative) 08/18/18 21:10 Urine Urobilinogen Negative (Negative) 08/18/18 21:10 Ur Leukocyte Esterase Negative (Negative) 08/18/18 21:10 Salicylates < 1.7 mg/dl (2.8-20) L 08/18/18 21:43 Urine Opiates Screen Neg (Neg) 08/18/18 21:10 Ur Methadone, Qual Neg (Neg) 08/18/18 21:10 Acetaminophen < 2 ug/ml (10-30) L 08/18/18 21:43 Urine Barbiturates Neg (Neg) 08/18/18 21:10 Ur Phencyclidine (PCP) Neg (Neg) 08/18/18 21:10 U Amphetamin/Meth Scrn Neg (Neg) 08/18/18 21:10 MDMA (Ecstasy) Screen Neg (Neg) 08/18/18 21:10 U Benzodiazepines Scrn Neg (Neg) 08/18/18 21:10 Ur Cocaine Metabolite Neg (Neg) 08/18/18 21:10 U Marijuana (THC) Screen Neg (Neg) 08/18/18 21:10 Ethyl Alcohol mg/dL 252.2 mg/dl (0-3) H 02/20/19 21:43 Medications Administered Home Medications Medication Instructions Recorded Confirmed olanzapine [Zyprexa] 5 mg PO HS 08/16/18 08/18/18 omega 4-rqq-prg-fish oil [Fish Oil] 1,000 mg PO DAILY 08/18/18 08/18/18 zolpidem [Ambien CR] 12.5 mg PO HS 08/19/18 08/19/18 Code Status & VTE Plan Code Status Full code VTE Prophylaxis Plan VTE Prophylaxis will be ordered: Yes _ (1) Alcohol intoxication Complication of substance-induced condition: uncomplicated Qualified Code(s) : F10.920 - Alcohol use, unspecified with intoxication, uncomplicated
[2018-08-19] MEDS ORDERED: ATIVAN IV ALCOHOL WITHDRAWL IV SCH (06:19)
[2018-08-19] MEDS ORDERED: POLYETHYLENE (MIRALAX) 17 GM PACK PO PRN (06:19)
[2018-08-19] MEDS ORDERED: THIAMINE HCL 100 MG TAB PO STA (06:19)
[2018-08-19] MEDS ORDERED: ONDANSETRON INJ 2 MG/ML 2 ML VIAL IV PRN (06:19)
[2018-08-19] MEDS: NSS + 20MEQ KCL 20 MEQ/1,000 ML BAG IV SCH ×3 (06:40→22:48)
[2018-08-19] MEDS: LORazepam 1 MG/2 ML VIAL IV PRN ×2 (06:43→08:00)
[2018-08-19] MEDS: NEPHROCAPS PO SCH (08:07)
[2018-08-19] MEDS: METOPROLOL TARTRATE 1 MG/ML VIAL IV SCH ×5 (08:07→23:45)
[2018-08-19] MEDS: OMEGA-3 (PURIFIED FISH OIL) 1 GM CAP PO SCH (08:07)
[2018-08-19] MEDS: FOLIC ACID 1 MG TAB PO SCH (08:07)
[2018-08-19] MEDS: LORazepam 3 MG/6 ML VIAL IV PRN ×2 (11:04→17:30)
--- NOTE | 2018-08-19 11:40 | Psychiatric Consultation ---
Date of Consultation August 19, 2018 Impression / Recommendations Impression 33 yo male with reported schizophrenia, presented to the ED with reports of worsening hallucinations, and alcohol abuse. He is currently going through withdrawal and will require medical stabilization before we can consider mental health treatment. Info from his OP psychiatrist and family would be helpful, as he tells me he is not suicidal and that previous reports had been conditional based on fears his father would sell the house he lives in. Hallucinations are chronic. Would suggest maintaining his Zyprexa 5 mg at HS, and we will follow along with you. We will determine further mental health treatment needs when cleared. There is a 302 petitioners statement on the chart from the ED.. (1) Schizophrenia: 08/19 - Continue Zyprexa - Will need to be medically stable before making recs re: mental health treatment, as today he is denying SI, and hallucinations are chronic. We will follow along with you. Present on Admission?: Yes Inventory Assets Strengths: Willingness to engage in treatment Needs: Sobriety Risk Factors Assessment Male: Yes : Yes Health Problems: Yes Mental Health Diagnoses: Yes Substance Use Disorders: Yes Previous Attempt: No Previous Psychiatric Hospitalization: Yes Hopelessness: No Protective Factors Assessment : No Responsible for Young Children: No Employed: No Supportive Family: Yes CPT Code 23133 Psych History Identifying Data 33 yo male who presented to the ED with complaints of hallucinations, SI and alcohol abuse, admitted medically due to Alcohol Withdrawal. We are consulted to evaluate SI. Information is gathered from the patient and the EHR and considered to be reliable. Chief Complaint "Its more like a worry.". History of Present Illness The patient is a 33 yo male, currently in treatment with [facility], who reports that he has had increasing stress lately, resulting in more hallucinations, that he has been using alcohol to self medicate. He has had to replace several appliances at the home in which he lives (which is also a rental property owned by his father) and he found this to be stressful. He talks about chronic auditory hallucinations of at least 2 male voices, attorneys , who talk back and forth. He tells me they never command him to do things but throughout the notes there are references to him saying that the voices tell him to do "this and that" and one mention of telling him to buy alcohol. He says that the voices got worse in May after he missed his flight from [facility] to [place] causing him to have a panic attack that he medicated with ativan and alcohol. At some point in [place] he ran out of Rexulti that he had been on at the time. He reports a diagnosis of schizophrenia. Over the course of at least the last week, he endorses drinking at least half of a 1.75 L bottle of vodka and beer. He has had 2 other ED visits in July, one for nausea, and the second for hallucinations. He reports his mood as "chaotic" due to stress, sleep is "off and on" admitting that he drinks to get to sleep. He denies any visual experiences, now or at any time in the past. He spoke earlier with the liaison about his statements of suicide saying that he would think about hanging himself "if his father were to sell the house", but Brad says that this is just a fear of his, that his father has said nothing about selling it. He denies any clear symptoms of pham and today denies SI/HI. Past Psychiatric History Previous Psych History: Treatment in [place] many years ago Current Psychiatric Diagnosis: Schizophrenia Outpatient Services: Dr. God[facility]ard [facility] Previous Psych Admissions: [place] 20 years ago History of Previous Suicide Attempt: No Describe Attempts in the Past: Denies Past Medication Trials: Rexulti- rx ran out depakote risperdal seroquel Allergies Allergy/AdvReac Type Severity Reaction Status Date / Time No Known Allergies Allergy Verified 08/18/18 23:13 Home Medications Home Medications Medication Instructions Recorded Confirmed Type olanzapine [Zyprexa] 5 mg PO HS 08/16/18 08/18/18 History omega 3-qml-iew-fish oil [Fish Oil] 1,000 mg PO DAILY 08/18/18 08/18/18 History zolpidem [Ambien CR] 12.5 mg PO HS 08/19/18 08/19/18 History Family History Mother with bipolar Substance Abuse History Inconsistent reports of duration of alcohol abuse, but goes back to at least May Personal History Living Arrangements: APartment Childhood: Parents are . Mother works for [employer], father is retired. He has no siblings Highest Grade Completed: High School Graduate Highest Grade Completed Comment: Attended [employer] in [place] and says that he is studying math at [employer] but is a freshman Employment Status: Disabled Marital Status: Single Number Of Children: None Beliefs That Will Affect Care: None History of Legal Problems: Denies Psychological Trauma History Comment: Denies Patient History Medical History Schizophrenia (Chronic) Sleep apnea (Chronic) No significant family history No significant past surgical history Social History Current Living Situation: Other Current Living Situation Comment: Lives with roomates Other Information That Helps Us Care for You: No Feels Safe at Home: Yes Safety Concerns: Feels Safe At This Time Smoking Status: Never smoker Do You Dip or Chew Tobacco: No Second Hand Exposure: Yes Tobacco Cessation Education Requested by Patient: No Hx Alcohol Use: Yes Alcohol type: beer, wine and hard liquor Alcohol Intake Frequency: 3 or more drinks per day Hx Substance Use: Yes substance use type: former substance user and marijuana Last Used Substance Other:: 2 months ago - marijuana Beliefs That Will Affect Care: None Preferred Language: Malian Communication Ability: Effective Retail Equipment Associate Required: No Physical Exam Psychiatric Orientation: alert and cooperative Apperance: appropriately dressed Eye Contact: + fair eye contact restless Speech: normal rate/rhythm/volume of speech Affect: + anxious affect Mood: + anxious mood "Chaotic" disjointed Thought Content: + cognitive distortions Suicidal Thoughts: denies suicidal thoughts (but conditionally says that if father ever sold the place he lives he would hang himself) Homicidal Thoughts: denies homicidal thoughts Hallucinations: + auditory hallucinations; no visual hallucinations Cognition: language grossly intact Estimated Intelligence: consistent with education level Insight: + impaired insight Judgement: + impaired judgement Vital Signs (Past 24 Hours) Last Vital Signs Temp 36.6 C 08/19/18 11:10 Pulse 116 H 08/19/18 11:22 Resp 18 08/19/18 11:10 BP 156/93 H 08/19/18 11:22 Pulse Ox 97 08/19/18 11:10 Review of Systems All systems reviewed & are unremarkable except as noted in HPI & below Results & Data Medications Administered Fish Oil (Sargent-3 (Purified Fish Oil)) 1 gm PO DAILY SILVESTRE Stop: 09/18/18 08:59 Last Admin: 08/19/18 08:07 Dose: 1 gm Folic Acid (Folvite) 1 mg PO QAM [facility] Stop: 09/18/18 08:59 Last Admin: 08/19/18 08:07 Dose: 1 mg Lorazepam (Ativan) 1 mg in 2 mls @ 2 mls/min IV UD PRN; Protocol PRN Reason: EtOH Withdrawl AWSS Score 6,7 Stop: 09/18/18 06:18 Last Admin: 08/19/18 08:00 Dose: 2 mls/min Admin: 08/19/18 06:43 Dose: 2 mls/min Lorazepam (Ativan) 3 mg in 6 mls @ 4 mls/min IV ONCE PRN; Protocol PRN Reason: EtOH Withdrawl AWSS Score >=10 Stop: 09/18/18 06:18 Last Admin: 08/19/18 11:04 Dose: 4 mls/min Potassium Chloride/Sodium Chloride (Normal Saline W/20 Meq Kcl) 20 meq in 1, 000 mls @ 100 mls/hr IV .Q10H [facility] Stop: 09/18/18 06:29 Last Admin: 08/19/18 06:40 Dose: 100 mls/hr Metoprolol Tartrate (Lopressor) 5 mg IV Q4 [facility] Stop: 09/18/18 07:59 Last Admin: 08/19/18 08:07 Dose: 5 mg Vitamin B Complex/Folic Acid (Nephrocaps) 1 cap PO QAM [facility] Stop: 09/18/18 08:59 Last Admin: 08/19/18 08:07 Dose: 1 cap
--- NOTE | 2018-08-19 14:18 | Ultrasound Report ---
BILIARY ULTRASOUND CLINICAL HISTORY: abnormal LFT's COMPARISON STUDY: No previous studies for comparison. FINDINGS: The liver is of increased echogenicity, a nonspecific finding most often seen in hepatic st eatosis. No focal hepatic masses are visualized. The gallbladder appears sonographically normal. Ther e is no ductal dilatation. There is no right-sided hydronephrosis. The pancreas was poorly visualized . No definite masses were evident. The body and tail were obscured due to overlying bowel gas shadowi ng. IMPRESSION: 1. Mild hepatomegaly. 2. Increased hepatic echogenicity, a nonspecific finding most often seen in hepatic steatosis 3. No ductal dilatation. Ultrasonographically normal gallbladder Electronically signed by: Luc Culver M.D. 08/19/2018 2:16 PM
--- NOTE | 2018-08-19 17:39 | History & Physical Bridge Note ---
Date of Service August 19, 2018 History & Physical Bridge Note Patient seen and examined today. Continues to be tachycardic and somewhat anxious. RUQ u/s showed expected hepatic steatosis. Will manage withdrawals and plan for further psych evaluation.
[2018-08-19] MEDS: OLANZapine 5 MG TABLET PO SCH (20:11)
[2018-08-19] MEDS: ZOLPIDEM TARTRATE 10 MG TAB PO SCH (20:12)
[2018-08-19] MEDS ORDERED: IBUPROFEN 600 MG TAB PO STA (22:59)
[2018-08-20] MEDS: LORazepam 1 MG/2 ML VIAL IV PRN ×3 (00:18→15:22)
[2018-08-20] MEDS: METOPROLOL TARTRATE 1 MG/ML VIAL IV SCH ×3 (03:50→12:08)
[2018-08-20] MEDS: LORazepam 2 MG/4 ML VIAL IV PRN ×2 (06:35→12:08)
[2018-08-20 06:40] LABS: Basophils # (auto) 0.01 K/uL (0-0.2); Basophils % (auto) 0.1 %; Eosinophils # (auto) 0.01 K/uL (0-0.5); Eosinophils % (auto) 0.1 %; Hematocrit (blood only) 45.7 % (42-52); Hemoglobin 15.3 g/dL (14.0-18.0); Immature Granulocytes # (auto) 0.03 K/uL (0.00-0.02); Immature Granulocytes % (auto) 0.3 %; Lymphocytes # (auto) 1.19 K/uL (1.2-3.4); Lymphocytes % (auto) 13.1 %; Mean Corpuscular Hgb Conc 33.5 g/dL (32-36); Mean Corpuscular Volume 90.3 fL (80-100); Mean Platelet Volume 10.4 fL (7.4-10.4); Monocytes # (auto) 0.69 K/uL (0.11-0.59); Monocytes % (auto) 7.6 %; Neutrophils # (auto) 7.15 K/uL (1.4-6.5); Neutrophils % (auto) 78.8 %; Platelet Count 224 K/uL (130-400); RDW Coefficient of Variation 14.1 % (11.5-14.5); RDW Standard Deviation 46.1 fL (36.4-46.3); Red Blood Count 5.06 M/uL (4.7-6.1); White Blood Count 9.08 K/uL (4.8-10.8)
[2018-08-20 06:54] LABS: Partial Thromboplastin Time 28.2 Seconds (21.0-31.0); Prothrombin Time 10.1 Seconds (9.0-12.0)
[2018-08-20 07:14] LABS: Albumin Level 3.4 gm/dl (3.4-5.0); BUN Creatinine Ratio 7.7 (10-20); Calcium 8.3 mg/dl (8.5-10.1); Creatinine Clr Calc Pharmacy 130.7 ml/min; Est GFR (African American) 111.7; Est GFR (Non-African American) 96.3; Potassium 3.5 mmol/L (3.5-5.1)
[2018-08-20 07:17] LABS: Albumin Globulin Ratio 0.9 (0.9-2); Bilirubin,Total 0.5 mg/dl (0.2-1); Globulin 3.6 gm/dl (2.5-4.0)
[2018-08-20] MEDS: FOLIC ACID 1 MG TAB PO SCH (09:15)
[2018-08-20] MEDS: THIAMINE HCL 100 MG TAB PO SCH (09:16)
[2018-08-20] MEDS: OMEGA-3 (PURIFIED FISH OIL) 1 GM CAP PO SCH (09:16)
[2018-08-20] MEDS: NEPHROCAPS PO SCH (09:16)
[2018-08-20] MEDS: NSS + 20MEQ KCL 20 MEQ/1,000 ML BAG IV SCH ×2 (09:29→19:28)
--- NOTE | 2018-08-20 13:11 | Hospitalist Progress Note ---
Date of Service August 20, 2018 Assessment & Plan (1) Alcohol withdrawal: Tachycardic, but otherwise fairly few signs of withdrawal. - Continue AWSS protocol with IV Ativan. - Thiamine 100 mg p.o. every morning. - Folic acid 1 mg p.o. every morning. (2) Schizophrenia: Schizophrenia/auditory hallucinations/suicidal ideation - Order one-on-one observation. - Psychiatry following - Continue home medications of olanzapine 5 mg p.o. at bedtime, and zolpidem 12.5 mg p.o. at bedtime (3) Suicidal ideation: As above. Will order one-on-one observation (4) Tachycardia: HR is remaining in the 100-120 range, but without overt symptoms. HR does improve with the Ativan. Likely an aspect of his withdrawal, but will get lower extremity Dopplers to help rule out VTE as cause. - Initially on metop 5 mg IV every 4 hours - On 08/20, added low-dose PO metoprolol as well (5) Abnormal liver function tests: Likely due to alcohol intake. RUQ u/s on 08/19 showed hepatic steatosis, but was otherwise fairly normal. - Follow LFTs - Avoid hepatotoxic agents. (6) DVT prophylaxis: Lovenox Subjective 33yo M w/ hx of schizophrenia and alcohol abuse who presented with suicidal ideation and alcohol withdrawal. This morning, he is pretty anxious, but otherwise well. No real shaking. Reports no fevers/chills, chest pain, shortness of breath, abdominal pain, nausea, or vomiting. Physical Exam 2 Vital Signs (Past 24 Hours): Last Vital Signs Temp 37.3 C 08/20/18 11:21 Pulse 107 H 08/20/18 12:08 Resp 18 08/20/18 11:21 BP 161/111 H 08/20/18 11:21 Pulse Ox 96 08/20/18 11:21 Constitutional: WD/WN, vitals as above well developed and well nourished; not intoxicated appearing Respiratory: normal respiratory effort, lungs clear to auscultation Cardiovascular: Rate/Rhythm: regular rate, regular rhythm and + tachycardic Gastrointestinal (Abdomen): normal bowel sounds, soft, nontender, no hepatosplenomegaly Psychiatric: Orientation: alert and cooperative Apperance: appropriately dressed Eye Contact: + fair eye contact Affect: + anxious affect Mood: + anxious mood Hallucinations: + auditory hallucinations; no visual hallucinations Cognition: language grossly intact
[2018-08-20] MEDS ORDERED: METOPROLOL TARTRATE 1 MG/ML VIAL IV PRN (13:13)
--- NOTE | 2018-08-20 14:48 | Ultrasound Report ---
BILATERAL LOWER EXTREMITY VENOUS DOPPLER HISTORY: Tachycardia COMPARISON STUDY: None. FINDINGS: There is normal compressibility, flow, and augmentation within the bilateral lower extremit y deep venous systems. IMPRESSION: No DVT within the right or left lower extremity. Electronically signed by: Alberto Rivera M.D. 08/20/2018 2:47 PM
[2018-08-20] MEDS: METOPROLOL TARTRATE 25 MG TAB PO SCH ×2 (15:22→20:50)
[2018-08-20] MEDS: ZOLPIDEM TARTRATE 10 MG TAB PO SCH (20:50)
[2018-08-20] MEDS: OLANZapine 5 MG TABLET PO SCH (20:51)
[2018-08-20] MEDS: LORazepam 3 MG/6 ML VIAL IV PRN (21:05)
[2018-08-21] MEDS: METOPROLOL TARTRATE 25 MG TAB PO SCH ×3 (05:19→21:47)
[2018-08-21] MEDS: NSS + 20MEQ KCL 20 MEQ/1,000 ML BAG IV SCH ×2 (05:23→15:52)
[2018-08-21 05:56] LABS: Basophils # (auto) 0.02 K/uL (0-0.2); Basophils % (auto) 0.2 %; Eosinophils # (auto) 0.04 K/uL (0-0.5); Eosinophils % (auto) 0.5 %; Hematocrit (blood only) 46.2 % (42-52); Hemoglobin 15.4 g/dL (14.0-18.0); Immature Granulocytes # (auto) 0.02 K/uL (0.00-0.02); Immature Granulocytes % (auto) 0.2 %; Lymphocytes # (auto) 1.52 K/uL (1.2-3.4); Lymphocytes % (auto) 17.8 %; Mean Corpuscular Hgb Conc 33.3 g/dL (32-36); Mean Corpuscular Volume 90.8 fL (80-100); Mean Platelet Volume 10.4 fL (7.4-10.4); Monocytes # (auto) 0.71 K/uL (0.11-0.59); Monocytes % (auto) 8.3 %; Neutrophils # (auto) 6.23 K/uL (1.4-6.5); Platelet Count 198 K/uL (130-400); RDW Coefficient of Variation 13.9 % (11.5-14.5); RDW Standard Deviation 46.6 fL (36.4-46.3); Red Blood Count 5.09 M/uL (4.7-6.1); White Blood Count 8.54 K/uL (4.8-10.8)
[2018-08-21 06:27] LABS: Albumin Globulin Ratio 0.8 (0.9-2); Albumin Level 3.3 gm/dl (3.4-5.0); BUN Creatinine Ratio 5.5 (10-20); Bilirubin,Total 0.3 mg/dl (0.2-1); Calcium 8.5 mg/dl (8.5-10.1); Creatinine Clr Calc Pharmacy 119.1 ml/min; Est GFR (African American) 99.8; Est GFR (Non-African American) 86.1; Potassium 3.7 mmol/L (3.5-5.1); Total Protein 7.3 gm/dl (6.4-8.2)
[2018-08-21] MEDS: THIAMINE HCL 100 MG TAB PO SCH (08:43)
[2018-08-21] MEDS: NEPHROCAPS PO SCH (08:43)
[2018-08-21] MEDS: FOLIC ACID 1 MG TAB PO SCH (08:43)
[2018-08-21] MEDS: OMEGA-3 (PURIFIED FISH OIL) 1 GM CAP PO SCH (08:43)
--- NOTE | 2018-08-21 13:12 | Hospitalist Progress Note ---
Date of Service August 21, 2018 Assessment & Plan (1) Alcohol withdrawal: Tachycardic, but otherwise fairly few signs of withdrawal. - Continue AWSS protocol with IV Ativan. - Thiamine 100 mg p.o. every morning. - Folic acid 1 mg p.o. every morning. - As of 08/21, had no tremors, was calm, and was oriented to his situation. (2) Schizophrenia: Schizophrenia/auditory hallucinations/suicidal ideation - Order one-on-one observation. - Psychiatry following - Continue home medications of olanzapine 5 mg p.o. at bedtime and zolpidem 12.5 mg p.o. at bedtime (3) Suicidal ideation: As above. On one-on-one observation. - May need psych admission (4) Tachycardia: HR is 90-100 range, but without overt symptoms. HR does improve with the Ativan. LE Dopplers were negative on 08/20. Likely an aspect of his withdrawal. - Initially on metop 5 mg IV every 4 hours - On 08/20, added low-dose PO metoprolol as well - On 08/21, HR was improved to 90-100 range without using the metoprolol IV PRN doses (5) Abnormal liver function tests: Likely due to alcohol intake. RUQ u/s on 08/19 showed hepatic steatosis, but was otherwise normal. - Follow LFTs - Avoid hepatotoxic agents. (6) DVT prophylaxis: Davina Subjective 33yo M w/ hx of schizophrenia and alcohol abuse who presented with suicidal ideation and alcohol withdrawal. This morning, he is quite calm. No shaking. Does report some diarrhea. Reports no fevers/chills, chest pain, shortness of breath, abdominal pain, nausea, or vomiting. Physical Exam 2 Vital Signs (Past 24 Hours): Last Vital Signs Temp 37.2 C 08/21/18 11:39 Pulse 99 H 08/21/18 11:39 Resp 22 08/21/18 11:39 BP 146/92 H 08/21/18 11:39 Pulse Ox 97 08/21/18 11:39 Constitutional: WD/WN, vitals as above well developed and well nourished; not intoxicated appearing Eyes: no scleral abnormality Neck: trachea midline, no thyromegaly Respiratory: normal respiratory effort, lungs clear to auscultation Cardiovascular: Rate/Rhythm: regular rate, regular rhythm and + tachycardic Gastrointestinal (Abdomen): normal bowel sounds, soft, nontender, no hepatosplenomegaly Psychiatric: Orientation: alert and cooperative Apperance: appropriately dressed Eye Contact: + fair eye contact Affect: + anxious affect Mood: + anxious mood Hallucinations: + auditory hallucinations; no visual hallucinations Cognition: language grossly intact
--- NOTE | 2018-08-21 14:14 | Psychiatric Progress Note ---
Date of Service August 21, 2018 Impression / Recommendations Impression 33 y/o male with alcohol abuse and schizophrenia who is admitted medically for alcohol withdrawal. Records from his outpatient psychiatrist have been reviewed and reveal a long history of alcohol abuse, zolpidem abuse, hospitalization in [place] several months ago for overdose on alcohol and zolpidem, and chronic noncompliance with antipsychotic medication. His hallucinations are chronic, and have worsened since he decrease his dose of olanzapine, but he is unwilling to increase the dose at this time. He does not meet criteria for involuntary psychiatric treatment, and is not willing for voluntary treatment. (1) Schizophrenia: 08/19 - Continue Zyprexa - Will need to be medically stable before making recs re: mental health treatment, as today he is denying SI, and hallucinations are chronic. We will follow along with you. 08/21 -Although patient admits hallucinations worsened after he decreased his dose of olanzapine, he is unwilling to increase the dose or to switch to a different antipsychotic. Continue 5 mg of olanzapine at bedtime. We will coordinate care with his outpatient psychiatrist, Dr. Goddard, at the [facility]. -Patient is consistently denying suicidal thoughts, and does not meet criteria for involuntary commitment. He is unwilling for voluntary psychiatric care, and can be discharged to outpatient care at the time of medical clearance. (2) Alcohol dependence: 08/21 -patient has a history of alcohol abuse, hospitalization in [place] several months ago for alcohol and zolpidem overdose, and was also abusing his zolpidem. It was actually discontinued 5 months ago, and there is no record of him filling any controlled substances since 02/2018 on the PDMP. I will remove the Ambien CR from his admission medication reconciliation, and discontinue it here. It is contraindicated due to his substance abuse, including recent hospitalization due to overdose on alcohol and zolpidem. The risks of this medication in his case clearly outweigh the benefits. Present on Admission?: Yes Inventory Assets Strengths: Willingness to engage in treatment Needs: Sobriety Risk Factors Assessment Male: Yes : Yes Health Problems: Yes Mental Health Diagnoses: Yes Substance Use Disorders: Yes Previous Attempt: No Previous Psychiatric Hospitalization: Yes Hopelessness: No Protective Factors Assessment : No Responsible for Young Children: No Employed: No Supportive Family: Yes Interval History Identifying Information 33-year-old single male with a history of schizophrenia and alcohol dependence who is admitted medically for alcohol withdrawal. Psychiatry was consulted for suicidal ideation, and he is seen today for follow-up. Chief Complaint "Good, better". Review of Systems Notes + Sedation, denies tremor Subjective Subjective Patient was seen & assessed and interval progress reviewed. He was initially seen 08/19/2018 by SOL Kruger, at which point he was denying suicidal thoughts, but going through alcohol withdrawal. He reported hallucinations of voices, which are chronic. He was continued on his home dose of olanzapine 5 mg daily. Outpatient records were reviewed from his psychiatrist, Dr. Goddard, at the [facility]. He is diagnosed with schizophrenia, and is prescribed olanzapine 15 mg nightly. He was last seen 07/26/2018, and reported that he had been taking only a fraction of his prescribed dose of olanzapine 15 mg at bedtime (taking 1/4 or 1/2 a pill). He admitted that his racing thoughts had worsened, and asked for Sonata. He had recently been granted SSI, but was denied SSDI, although he was planning to fight it with his operations support professionals. His father is his rep payee. He reported drinking sake every night. He was taking an online math course, with plans to enroll on campus in the summer. End his appointment 07/08/2018, he had just returned from a 4-month trip to [place] in [place] where he stayed with his father and mother alternately. He had worsening auditory hallucinations of voices while there, and had overdosed on zolpidem and alcohol and had to be hospitalized on the psychiatric unit in [place]. While there he was started on olanzapine, and zolpidem was discontinued. He admitted he was still drinking sake daily. In 02/2018, he was seen and reported that he stopped taking Rexulti on his own, and quetiapine was increased and Rexulti restarted. In 01/2018, he reported he was drinking more alcohol, and was advised not to mix alcohol and zolpidem and to decrease his intake. He also asked about using marijuana while on his trip out [place], and was advised not to given the risk of worsening psychosis. And 2017, he had decreased his dose of Rexulti on his own and was taking 1/4 of the prescribed dose. He admitted to running out of zolpidem early, which he had also done in the past, as he was taking twice the prescribed dose. Per PDMP, he has not been prescribed zolpidem since 02/2018. On my assessment, he reports he is feeling better than on admission, denies hallucinations, and suicidal thoughts. He continues to have symptoms of alcohol withdrawal, and is sedated, receiving multiple doses of lorazepam daily. He admits that auditory hallucinations worsened after he decreased his olanzapine dose, but does not want to go back up on the dose, as he thinks it makes it difficult for him to concentrate on schoolwork. Attempted to discuss the risks of under treated schizophrenia, and that he is not able to complete schoolwork when he is actively hallucinating or hospitalized, but he remains unwilling to increase his dose of olanzapine, or to try different antipsychotic. He is not interested in inpatient psychiatric care, but is willing to follow up with Dr. Goddard. He is hoping to be discharged on Thursday, as he is worried about missing his online math class. Physical Exam Mental Examination Lying in bed in no acute distress, sedated but arousable to voice. Poor eye contact and keeps eyes closed. No abnormal movements. Mood is "better," affect is restricted to somnolent. Speech is minimal. Thoughts are concrete but goal-directed. Denies SI, HI, hallucinations, and paranoia. Alert and oriented to self and situation. Insight and judgment are impaired. Vital Signs (Past 24 Hours) Last Vital Signs Temp 37.2 C 08/21/18 11:39 Pulse 98 H 08/21/18 13:46 Resp 22 08/21/18 11:39 BP 156/99 H 08/21/18 13:46 Pulse Ox 97 08/21/18 11:39 Results & Data Laboratory Results Laboratory Results - last 24 hr 08/21/18 08/21/18 05:31 05:31 WBC 8.54 RBC 5.09 Hgb 15.4 Hct 46.2 MCV 90.8 MCH 30.3 MCHC 33.3 RDW Std Deviation 46.6 H RDW Coeff of Ronnie 13.9 Plt Count 198 MPV 10.4 Immature Gran % (Auto) 0.2 Neut % (Auto) 73.0 Lymph % (Auto) 17.8 [place] % (Auto) 8.3 Eos % (Auto) 0.5 Baso % (Auto) 0.2 Immature Gran # (Auto) 0.02 Neut # (Auto) 6.23 Lymph # (Auto) 1.52 [place] # (Auto) 0.71 H Eos # (Auto) 0.04 Baso # (Auto) 0.02 Sodium 136 Potassium 3.7 Chloride 104 Carbon Dioxide 26 Anion Gap 6.0 BUN 6 L Creatinine 1.13 Est Cr Clr Drug Dosing 119.1 Est GFR ( Amer) 99.8 Est GFR (Non-Af Amer) 86.1 BUN/Creatinine Ratio 5.5 L Glucose 122 H Calcium 8.5 Magnesium 2.0 Total Bilirubin 0.3 AST 57 H ALT 95 H Alkaline Phosphatase 77 Total Protein 7.3 Albumin 3.3 L Globulin 4.0 Albumin/Globulin Ratio 0.8 L Current Inpatient Medications Current Inpatient Medications: Current Inpatient Medications Fish Oil ([place]-3 (Purified Fish Oil)) 1 gm PO DAILY [facility] Stop: 09/18/18 08:59 Last Admin: 08/21/18 08:43 Dose: 1 gm Folic Acid (Folvite) 1 mg PO QAM [facility] Stop: 09/18/18 08:59 Last Admin: 08/21/18 08:43 Dose: 1 mg Lorazepam (Ativan) 1 mg in 2 mls @ 2 mls/min IV UD PRN; Protocol PRN Reason: EtOH Withdrawl AWSS Score 6,7 Stop: 09/18/18 06:18 Last Admin: 08/20/18 15:22 Dose: 2 mls/min Lorazepam (Ativan) 3 mg in 6 mls @ 4 mls/min IV ONCE PRN; Protocol PRN Reason: EtOH Withdrawl AWSS Score >=10 Stop: 09/18/18 06:18 Last Admin: 08/20/18 21:05 Dose: 4 mls/min Potassium Chloride/Sodium Chloride (Normal Saline W/20 Meq Kcl) 20 meq in 1, 000 mls @ 100 mls/hr IV .Q10H [facility] Stop: 09/18/18 06:29 Last Admin: 08/21/18 05:23 Dose: 100 mls/hr Lorazepam (Ativan) 2 mg in 4 mls @ 4 mls/min IV UD PRN; Protocol PRN Reason: EtOH Withdrawl AWSS Score 8,9 Stop: 09/18/18 06:18 Last Admin: 08/20/18 12:08 Dose: 4 mls/min Metoprolol Tartrate (Lopressor) 25 mg PO Q8H [facility] Stop: 09/19/18 13:59 Last Admin: 08/21/18 05:19 Dose: 25 mg Metoprolol Tartrate (Lopressor) 5 mg IV Q4H PRN PRN Reason: HR > 110 Stop: 09/19/18 13:14 Last Admin: 08/21/18 13:46 Dose: 5 mg Miscellaneous (Ativan Iv Alcohol Withdrawl) 1 ea IV UD [facility]; Protocol Stop: 09/18/18 06:18 Olanzapine (Zyprexa) 5 mg PO HS [facility] Stop: 09/18/18 20:59 Last Admin: 08/20/18 20:51 Dose: 5 mg Ondansetron HCl (Zofran) 4 mg IV Q6H PRN PRN Reason: NAUSEA/VOMITING Stop: 09/18/18 06:18 Polyethylene Glycol (Miralax Powder Packet) 17 gm PO DAILY PRN PRN Reason: Constipation Stop: 09/18/18 06:18 Thiamine HCl (Vitamin B-1) 100 mg PO QAM [facility] Stop: 09/19/18 08:59 Last Admin: 08/21/18 08:43 Dose: 100 mg Vitamin B Complex/Folic Acid (Nephrocaps) 1 cap PO QAM [facility] Stop: 09/18/18 08:59 Last Admin: 08/21/18 08:43 Dose: 1 cap Zolpidem Tartrate (Ambien) 10 mg PO HS [facility] Stop: 09/18/18 20:59 Last Admin: 08/20/18 20:50 Dose: 10 mg Post Discharge Appointments Primary Care Physician Name Of Family Doctor: [facility] on [address] Therapist Name of Therapist: Ines at [facility] Date of Therapist Appointment: 08/25/18 Hardware Sales Assistant Name of Hardware Sales Assistant: Rickie CPT Code CPT Code 41163
[2018-08-21] MEDS: OLANZapine 5 MG TABLET PO SCH (19:35)
[2018-08-22] MEDS: LORazepam 1 MG/2 ML VIAL IV PRN ×5 (01:25→22:40)
[2018-08-22] MEDS: NSS + 20MEQ KCL 20 MEQ/1,000 ML BAG IV SCH ×3 (01:25→21:09)
[2018-08-22] MEDS: LORazepam 2 MG/4 ML VIAL IV PRN (04:47)
[2018-08-22] MEDS: METOPROLOL TARTRATE 25 MG TAB PO SCH ×3 (06:05→20:05)
[2018-08-22 06:18] LABS: Basophils # (auto) 0.03 K/uL (0-0.2); Basophils % (auto) 0.5 %; Eosinophils # (auto) 0.07 K/uL (0-0.5); Eosinophils % (auto) 1.1 %; Hematocrit (blood only) 46.2 % (42-52); Hemoglobin 15.5 g/dL (14.0-18.0); Immature Granulocytes # (auto) 0.03 K/uL (0.00-0.02); Immature Granulocytes % (auto) 0.5 %; Lymphocytes # (auto) 1.52 K/uL (1.2-3.4); Lymphocytes % (auto) 23.4 %; Mean Corpuscular Hgb Conc 33.5 g/dL (32-36); Mean Corpuscular Volume 91.7 fL (80-100); Mean Platelet Volume 10.7 fL (7.4-10.4); Monocytes # (auto) 0.86 K/uL (0.11-0.59); Monocytes % (auto) 13.2 %; Neutrophils # (auto) 3.99 K/uL (1.4-6.5); Neutrophils % (auto) 61.3 %; Platelet Count 185 K/uL (130-400); RDW Coefficient of Variation 14.2 % (11.5-14.5); Red Blood Count 5.04 M/uL (4.7-6.1)
[2018-08-22 06:51] LABS: Albumin Level 3.2 gm/dl (3.4-5.0); BUN Creatinine Ratio 6.3 (10-20); Calcium 8.4 mg/dl (8.5-10.1); Est GFR (Non-African American) 97.5; Magnesium 2.1 mg/dl (1.8-2.4); Potassium 3.9 mmol/L (3.5-5.1)
[2018-08-22 06:54] LABS: Albumin Globulin Ratio 0.8 (0.9-2); Bilirubin,Total 0.3 mg/dl (0.2-1); Total Protein 7.2 gm/dl (6.4-8.2)
[2018-08-22] MEDS ORDERED: LOPERAMIDE HCL 2 MG CAP PO PRN (07:17)
[2018-08-22] MEDS: NEPHROCAPS PO SCH (08:32)
[2018-08-22] MEDS: THIAMINE HCL 100 MG TAB PO SCH (08:32)
[2018-08-22] MEDS: OMEGA-3 (PURIFIED FISH OIL) 1 GM CAP PO SCH (08:32)
[2018-08-22] MEDS: FOLIC ACID 1 MG TAB PO SCH (08:33)
[2018-08-22] MEDS ORDERED: ZOLPIDEM TARTRATE 5 MG TAB PO PRN (11:00)
--- NOTE | 2018-08-22 11:13 | Hospitalist Progress Note ---
Date of Service August 22, 2018 Assessment & Plan (1) Alcohol withdrawal: Tachycardic, but otherwise fairly few signs of withdrawal. - Continue VANNESA protocol with IV Ativan. - Thiamine and folate PO daily - As of 08/22, had no tremors, was calm, and was oriented to his situation. Ativan requirement down to 1mg - 2mg every 8 hours or so. - Likely discharge to psych on Thursday (2) Tachycardia: HR is 90-100 range, but without overt symptoms. HR does improve with the Ativan. LE Dopplers were negative on 08/20. Likely an aspect of his withdrawal vs. some mild dehydration from alcohol and diarrhea. - Initially on metop 5 mg IV every 4 hours - On 08/20, added low-dose PO metoprolol as well - On 08/22, HR was improved to 90-100 range, but still needing rare metoprolol 5mg IV PRN doses - If tachycardia does not improve/resolve in another 1-2 days, could consider CTA chest or V/Q scan +/- cardiology consult (3) Diarrhea: Patient has been having diarrhea in the hospital. Reports it has been going on for "years." No blood or mucus in the stool. Reports at home he takes Imodium and a probiotic which resolves it. Reports his father has a history of Crohn's disease, but no diagnosis himself. Reports he saw GI "years ago," but has no information on testing or results. - C. diff negative on 08/21 - Started Imodium and probiotic on 08/22 -> Could benefit from outpatient GI evaluation for long-standing diarrhea (4) Schizophrenia: Schizophrenia/auditory hallucinations/suicidal ideation. On admission, patient was reporting plans to kill himself if his father sold their house. - Order one-on-one observation. - Psychiatry following - Continued home olanzapine 5mg PO QHS - Patient requesting Ambien CR, but we only have regular Ambien -> Will do 5mg PO QHS PRN and monitor insomina. (5) Suicidal ideation: As above. On one-on-one observation. - May need psych admission (6) Abnormal liver function tests: Likely due to alcohol intake. RUQ u/s on 08/19 showed hepatic steatosis, but was otherwise normal. - Avoid hepatotoxic agents. - Follow LFTs - Improving as of 02/24 and almost back to normal. (7) DVT prophylaxis: Davina Subjective 33yo M w/ hx of schizophrenia and alcohol abuse who presented with suicidal ideation and alcohol withdrawal. This morning, he is quite calm. No shaking. Report diarrhea that is long- standing. Reports no fevers/chills, chest pain, shortness of breath, abdominal pain, nausea, or vomiting. Physical Exam 2 Vital Signs (Past 24 Hours): Last Vital Signs Temp 36.8 C 08/22/18 07:10 Pulse 104 H 08/22/18 08:20 Resp 18 08/22/18 07:10 BP 144/98 H 08/22/18 07:10 Pulse Ox 93 08/22/18 07:10 Constitutional: WD/WN, vitals as above well developed and well nourished; not intoxicated appearing Eyes: no scleral abnormality Neck: trachea midline, no thyromegaly Respiratory: normal respiratory effort, lungs clear to auscultation Cardiovascular: Rate/Rhythm: regular rate, regular rhythm and + tachycardic Gastrointestinal (Abdomen): normal bowel sounds, soft, nontender, no hepatosplenomegaly Psychiatric: Orientation: alert and cooperative Apperance: appropriately dressed Eye Contact: + fair eye contact Affect: + anxious affect Mood: + anxious mood Hallucinations: + auditory hallucinations; no visual hallucinations Cognition: language grossly intact
[2018-08-22] MEDS: SACCHAROMYCES BOULARDII 250 MG CAP PO SCH (12:10)
[2018-08-22] MEDS ORDERED: ALUMINUM/MAGNESIUM/SIMETH (MAALOX MAX) 30 ML UDC PO PRN (18:27)
[2018-08-22] MEDS: OLANZapine 5 MG TABLET PO SCH (20:05)
[2018-08-23] MEDS: LORazepam 1 MG/2 ML VIAL IV PRN (03:50)
[2018-08-23] MEDS: NSS + 20MEQ KCL 20 MEQ/1,000 ML BAG IV SCH (05:58)
[2018-08-23] MEDS: METOPROLOL TARTRATE 25 MG TAB PO SCH (05:58)
[2018-08-23 06:47] LABS: Albumin Level 2.9 gm/dl (3.4-5.0); BUN Creatinine Ratio 7.1 (10-20); Calcium 8.3 mg/dl (8.5-10.1); Creatinine Clr Calc Pharmacy 159.2 ml/min; Est GFR (African American) 134.6; Est GFR (Non-African American) 116.1; Potassium 3.8 mmol/L (3.5-5.1)
[2018-08-23 06:50] LABS: Albumin Globulin Ratio 0.7 (0.9-2); Bilirubin,Total 0.2 mg/dl (0.2-1); Total Protein 6.9 gm/dl (6.4-8.2)
[2018-08-23] MEDS: THIAMINE HCL 100 MG TAB PO SCH (07:52)
[2018-08-23] MEDS: OMEGA-3 (PURIFIED FISH OIL) 1 GM CAP PO SCH (07:52)
[2018-08-23] MEDS: SACCHAROMYCES BOULARDII 250 MG CAP PO SCH (07:52)
[2018-08-23] MEDS: NEPHROCAPS PO SCH (07:52)
[2018-08-23] MEDS: FOLIC ACID 1 MG TAB PO SCH (07:52)
[2018-08-23] MEDS ORDERED: ENOXAPARIN INJ 40 MG/0.4 ML SYR SQ SCH (09:00)
--- NOTE | 2018-08-23 12:46 | Discharge Summary ---
Date of Service August 23, 2018 Admission HPI Per Admitting Provider The patient is a 33 yo male, currently in treatment with [facility], who reports that he has had increasing stress lately, resulting in more hallucinations, that he has been using alcohol to self medicate. He has had to replace several appliances at the home in which he lives (which is also a rental property owned by his father) and he found this to be stressful. He talks about chronic auditory hallucinations of at least 2 male voices, attorneys, who talk back and forth. He tells me they never command him to do things but throughout the notes there are references to him saying that the voices tell him to do "this and that" and one mention of telling him to buy alcohol. He says that the voices got worse in May after he missed his flight from [facility] to [place] causing him to have a panic attack that he medicated with ativan and alcohol. At some point in [place] he ran out of [place] that he had been on at the time. He reports a diagnosis of schizophrenia. Over the course of at least the last week, he endorses drinking at least half of a 1.75 L bottle of vodka and beer. He has had 2 other ED visits in July, one for nausea, and the second for hallucinations. He reports his mood as "chaotic" due to stress, sleep is "off and on" admitting that he drinks to get to sleep. He denies any visual experiences, now or at any time in the past. He spoke earlier with the liaison about his statements of suicide saying that he would think about hanging himself "if his father were to sell the house", but Brad says that this is just a fear of his, that his father has said nothing about selling it. He denies any clear symptoms of pham and today denies SI/HI. Principal Diagnosis Alcohol withdrawal Discharge Exam Constitutional: WD/WN, vitals as above well developed and well nourished; not intoxicated appearing Eyes: no scleral abnormality Neck: trachea midline, no thyromegaly Respiratory: normal respiratory effort, lungs clear to auscultation Cardiovascular: Rate/Rhythm: regular rate, regular rhythm and + tachycardic Gastrointestinal (Abdomen): normal bowel sounds, soft, nontender, no hepatosplenomegaly Psychiatric: Orientation: alert and cooperative Apperance: appropriately dressed Eye Contact: + fair eye contact Affect: + anxious affect Mood: + anxious mood Hallucinations: + auditory hallucinations; no visual hallucinations Cognition: language grossly intact Discharge Data Allergies Allergy/AdvReac Type Severity Reaction Status Date / Time No Known Allergies Allergy Verified 08/18/18 23:13 Consultations 08/19/18 06:19 Consult Case Management - Discharge Planning Routine Consult Psychiatry Routine 08/19/18 06:34 ED Decision to Admit Stat Ordered Studies 08/19/18 06:19 US abdomen limited Stat 08/20/18 13:13 US venous doppler LE BI Routine Hospital Course (1) Alcohol withdrawal: Tachycardic, but otherwise fairly few signs of withdrawal. - Continue VANNESA protocol with IV Ativan. - Thiamine and folate PO daily - As of 08/22, had no tremors, was calm, and was oriented to his situation. Ativan requirement down to 1mg - 2mg every 8 hours or so. Discharged on Thursday (2) Tachycardia: HR is 90-100 range, but without overt symptoms. HR does improve with the Ativan. LE Dopplers were negative on 08/20. Likely an aspect of his withdrawal vs. some mild dehydration from alcohol and diarrhea. - Initially on metop 5 mg IV every 4 hours - On 08/20, added low-dose PO metoprolol as well - On 08/22, HR was improved to 90-100 range, but still needing rare metoprolol 5mg IV PRN doses - If tachycardia does not improve/resolve in another 1-2 days, could consider CTA chest or V/Q scan +/- cardiology consult (3) Diarrhea: Patient has been having diarrhea in the hospital. Reports it has been going on for "years." No blood or mucus in the stool. Reports at home he takes Imodium and a probiotic which resolves it. Reports his father has a history of Crohn's disease, but no diagnosis himself. Reports he saw GI "years ago," but has no information on testing or results. - C. diff negative on 08/21 - Started Imodium and probiotic on 08/22 -> Could benefit from outpatient GI evaluation for long-standing diarrhea (4) Schizophrenia: Schizophrenia/auditory hallucinations/suicidal ideation. On admission, patient was reporting plans to kill himself if his father sold their house. - Order one-on-one observation. - Psychiatry following - Continued home olanzapine 5mg PO QHS - Patient requesting Ambien CR, but we only have regular Ambien -> Will do 5mg PO QHS PRN and monitor insomina. (5) Suicidal ideation: As above. On one-on-one observation. Does not need psych admission (6) Abnormal liver function tests: Likely due to alcohol intake. RUQ u/s on 08/19 showed hepatic steatosis, but was otherwise normal. - Avoid hepatotoxic agents. - Follow LFTs - Improving as of 08/22 and almost back to normal. (7) DVT prophylaxis: Lovenox Total Time Total Time Spent Total Time Spent (In Minutes): 31 Total Time Includes: Examination of the Patient, Discharge Planning and Medication Reconciliation Discharge Plan Discharge Items Patient Disposition: Home - Self-Care Reason For Visit: ALCOHOL WITHDRAWAL, SCHIZOPHRENIA Discharge Diagnosis: Alcohol Withdrawal. Discharge Goals: Decrease discomfort Activity: Resume your previous activity Non-emergency contact: Primary Care Provider Call non-emergency contact if: you have any medication questions Follow-up/Referrals: [facility] [Outside] (follow up substaance abuse treatment August 26, 2018 at 530pm with Charito) Leyla Goddard [Staff Physician] - (follow up appt at [facility] with on Thursday August 30, 2018 1pm and with therapist Ines Perez Saturday August 25, 2018 at 5pm) Diet: Regular Addtl Provider Instructions: Followup with PCP in 1-2 weeks You will be discharged for 2 days worth of librium, this will help from withdrawal. Please do not operate heavy machinery while on this medicine. Please abstain from drinking alcohol as well. Prescriptions: No Action olanzapine 5 mg Tablet 5 mg PO HS RF: 0 thiamine HCl (vitamin B1) [Vitamin B-1] 100 mg tablet 100 mg PO QAM RF: 0 folic acid 1 mg tablet 1 mg PO QAM RF: 0 metoprolol tartrate 25 mg tablet 25 mg PO BID RF: 0 omega 2-tgv-[id number]-fish oil [Fish Oil] 1,000 mg (120 mg-180 mg) Capsule 1 cap PO DAILY RF: 0 Stand-Alone Forms: [facility] Discharge Orders: Discharge Order (Routine); Ordered 08/23/18 Ordered By: Maninder Longo Admission Data Admit Date/Time: 08/19/18 04:55 Attending Provider: Maninder Longo Admit Provider: Rocky [place] Primary Care Provider: Jam Queasda Other Providers: Pina Bailey Service: Telemetry Other Interventions: Discharge Summary Assessment (RN) Last Done: 08/23/18 13:11 DC Date/Time DO NOT enter until pt leaves facility: 08/23/18 14:07
== END 2018-08-23 14:07 | disposition home or self-care (01) ==
LOC: EDACCT# → ED 20:38 → SUATTDRO 08-19 04:55 → 2E 08-19 04:55